=== PATIENT | male | born 1955 | race Caucasian/White ===

== ENCOUNTER 2021-10-23 13:17 | Emergency (ER) | payer OTHER, BC ==
[2021-10-23 13:29] VITALS: PULSE 77; BMI 25.8
[2021-10-23] MEDS ORDERED: BEBTELOVIMAB (EUA) 175 MG/2 ML VIAL IVPUSH ONE (14:18)
[2021-10-23 17:08] VITALS: BP 152/92; TEMP 99.1
== END 2021-10-23 16:54 | disposition home or self-care (01) ==
LOC: JCOVINFU 13:17
PROC: 3E033GC Introduction of Other Therapeutic Substance into Peripheral Vein, Percutaneous Approach (ICD-10-PCS; principal; 2021-10-23)
DX: U07.1 COVID-19 (principal)
CPT/HCPCS: 99284-25; M0222; Q0222